=== PATIENT | male | born 1975 | race Caucasian/White ===

== ENCOUNTER → 2021-11-16 | Outpatient (CLI) | payer OTHER | LOC: ECHO 09:45 | DX: R06.00 Dyspnea, unspecified (principal) | CPT/HCPCS: ECHO; 93306; Q9957 ==

== ENCOUNTER → 2021-12-07 | Outpatient (CLI) | payer OTHER | LOC: EXRD 13:01 | DX: R06.00 Dyspnea, unspecified (principal); R91.8 Other nonspecific abnormal finding of lung field | CPT/HCPCS: 71046; 94060; 94729 ==